=== PATIENT | male | born 1940 | race Caucasian/White ===

== ENCOUNTER 2021-03-10 08:49 | Emergency (ER) | payer MEDICARE, OTHER ==
[~2021-03-10 08:49] MED LIST: CHLORHEXIDINE; CLEOCIN HCL300 MG PO; HYDROCHLOROTHIA25 MG PO; LIPITOR20 MG PO; NORCO 5-325 TA1 EACH PO; STOOL SOFTENER240 MG PO; TOPROL XL25 MG PO; VITAMIN B12; VITAMIN D 11000 UNIT PO
[2021-03-10 09:52] LABS: HEMOGLOBIN 15.1 gm/dl (14.0-17.5); RED BLOOD COUNT 4.5 M/UL (4.20-5.50); WHITE BLOOD COUNT 6.6 K/UL (4.5-11.0)
[2021-03-10 09:55] LABS: BUN/CREATININE RATIO 25 (0-10)
== END 2021-03-10 17:15 | disposition short-term general hospital (02) ==
LOC: ER1 08:49
PROVIDERS: Emergency Medicine
DX: S32.029A Unspecified fracture of second lumbar vertebra, initial encounter for closed fracture (principal); D69.6 Thrombocytopenia, unspecified; I10 Essential (primary) hypertension; Z85.46 Personal history of malignant neoplasm of prostate; F17.200 Nicotine dependence, unspecified, uncomplicated; X58.XXXA Exposure to other specified factors, initial encounter; Z85.79 Personal history of other malignant neoplasms of lymphoid, hematopoietic and related tissues
CPT/HCPCS: 72131; 80053; 81001; 85025; 96374; 96375; 96376; 99285; J2270; J2405; J7030

== ENCOUNTER 2021-04-14 11:32 | Emergency (ER) | payer MEDICARE, OTHER ==
[2021-04-14 12:14] LABS: HEMOGLOBIN 14.9 gm/dl (14.0-17.5); RED BLOOD COUNT 4.63 M/UL (4.20-5.50); WHITE BLOOD COUNT 6.4 K/UL (4.5-11.0)
[2021-04-14 12:42] LABS: BUN/CREATININE RATIO 20 (0-10)
== END 2021-04-14 14:54 | disposition home or self-care (01) ==
LOC: ER1 11:32
PROVIDERS: Physician Assistant
DX: R06.02 Shortness of breath (principal); I10 Essential (primary) hypertension; J44.9 Chronic obstructive pulmonary disease, unspecified; Z20.822 Contact with and (suspected) exposure to COVID-19; F17.210 Nicotine dependence, cigarettes, uncomplicated; Z86.718 Personal history of other venous thrombosis and embolism; Z90.49 Acquired absence of other specified parts of digestive tract; Z79.01 Long term (current) use of anticoagulants
CPT/HCPCS: 0240U; 71045; 80053; 82550; 82553; 83874; 83880; 84484; 85025; 93005; 96374; 99285; J1885; Q9967

== ENCOUNTER → 2021-07-05 | Outpatient (CLI) | payer MEDICARE, OTHER | LOC: HEART 5 10:37 | DX: J44.9 Chronic obstructive pulmonary disease, unspecified (principal); I10 Essential (primary) hypertension; N40.0 Benign prostatic hyperplasia without lower urinary tract symptoms | CPT/HCPCS: 94060; 94729 ==

== ENCOUNTER → 2021-07-05 | Outpatient (CLI) | payer MEDICARE, OTHER | LOC: RT 12:35 | DX: R09.02 Hypoxemia (principal) | CPT/HCPCS: 36600; 82803 ==

== ENCOUNTER 2022-01-07 15:44 | Inpatient (IN) | payer MEDICARE, OTHER ==
[~2022-01-07] VITALS: Ht 185.4 cm; Wt 98.0 kg
[2022-01-07 16:47] LABS: HEMOGLOBIN 12.6 gm/dl (14.0-17.5); RED BLOOD COUNT 3.78 M/UL (4.20-5.50); WHITE BLOOD COUNT 1.8 K/UL (4.5-11.0)
[2022-01-07 17:08] LABS: BUN/CREATININE RATIO 31 (0-10)
--- NOTE | 2022-01-08 01:57 | NUR ---
NOTIFIED OF PT BP 114/69, 116 PULSE, J28 RR, 02 94% ON 3 L PTS LUNGS ARE CLEAR, RR ARE SHALLOW ORDERED DUONEBS Q6HP LACTIC ACID ORDERED WCTM
[2022-01-08 02:43] LABS: WHITE BLOOD COUNT 1.6 K/UL (4.5-11.0)
[2022-01-08 03:15] LABS: RED BLOOD COUNT 3.21 M/UL (4.20-5.50)
--- NOTE | 2022-01-08 03:25 | NUR ---
PATIENTS LACTIC ACID OF 22 AND 27 THOMBO WAS CALLED TO [facility] 250 BOLUS ORDERED WCTM
[2022-01-08] MEDS ORDERED: IPRAT-ALBUT 0.5-3 ML INH (09:13)
[2022-01-08] MEDS ORDERED: BREZTRI AEROS10.7 GM INH (09:15)
[2022-01-08] MEDS ORDERED: LOPRESSOR 25 MG25 MG PO (09:16)
[2022-01-08] MEDS ORDERED: ZESTRIL5 MG PO (09:16)
[2022-01-08] MEDS ORDERED: MELATONIN5 M2 PO (09:17)
[2022-01-08] MEDS ORDERED: VAZALORE81 MG PO (09:18)
[2022-01-08] MEDS ORDERED: TYLENOL325 M1 PO (09:18)
[2022-01-08] MEDS ORDERED: NINLARO PO (09:27)
[2022-01-08] MEDS ORDERED: REVLIMID15 MG PO (09:28)
[2022-01-08] MEDS ORDERED: DEXAMETHASONE 44 MG PO (09:30)
--- NOTE | 2022-01-08 10:23 | NUR ---
MD AWARE OF PATIENT'S CRITICAL LACTIC ACID LEVEL AND CONTINUED HYPOTENSION AFTER LITER BOLUS.
--- NOTE | 2022-01-08 10:45 | NUR ---
RN SPOKE WITH MD ABOUT PATIENT'S LOW BLOOD PRESSURE AND NEED FOR PAIN MANAGEMENT. MD ORDERED RN TO PUT IN FOR A PCU BED AND STATED PATIENT WOULD NEED TO BE PUT ON A DRIP TO INCREASE BLOOD PRESSURE. MD STATED SHE WOULD PUT IN TRANSFER ORDER. RN NOTIFIED [employer] ABOUT PATIENT'S NEED FOR HIGHER LEVEL OF CARE. PATIENT BLOOD PRESSURE OBTAINED MANUALLY AND NOTED TO HAVE INCREASED SLIGHTLY TO 88/48. BED LOCKED AND LOW. CALL LIGHT WITHIN REACH. PENDING ROOM CLEAN NOTIFICATION VIA TELETRACKING.
--- NOTE | 2022-01-08 11:03 | NUR ---
REPORT CALLED TO DIMITRIS TRAMMELL ON PCU. PATIENT TO GO TO ROOM 6103, DR. MORTENSEN AND PRESCHOOL HEAD TEACHER AWARE.
--- NOTE | 2022-01-08 11:22 | NUR ---
PATIENT TRANSPORTED TO ROOM 6103 BY RN AND CHARGE NURSE.
--- NOTE | 2022-01-08 11:38 | NUR ---
patient's renetta made aware of transfer.
[2022-01-09 04:04] LABS: HEMOGLOBIN 10.7 gm/dl (14.0-17.5); RED BLOOD COUNT 3.19 M/UL (4.20-5.50)
[2022-01-09 04:17] LABS: WHITE BLOOD COUNT 3.2 K/UL (4.5-11.0)
[2022-01-10 01:39] LABS: HEMOGLOBIN 10.5 gm/dl (14.0-17.5); RED BLOOD COUNT 3.1 M/UL (4.20-5.50)
[2022-01-10 01:43] LABS: WHITE BLOOD COUNT 4.2 K/UL (4.5-11.0)
[2022-01-10 22:00] LABS: HEMOGLOBIN 10.8 gm/dl (14.0-17.5); RED BLOOD COUNT 3.19 M/UL (4.20-5.50); WHITE BLOOD COUNT 4.7 K/UL (4.5-11.0)
--- NOTE | 2022-01-11 00:49 | NUR ---
[id number] (RON) WAS NOTIFIED OF MD PLANNING TO INTUBATE PT. WAS ON BOARD AND AGREED TO MOVING FORWARD WITH INTUBATION. 01-11-2229 (RON) WAS CALLED AGAIN TO OBTAIN CONSENT FOR BLOOD. GAVE CONSENT FOR BLOOD VIA THE PHONE. WAS ALSO UPDATED ON PTS CURRENT CONDITION WELL THE NEED FOR US TO PERFORM AN EMERGENT BRONCH. WAS IN AGREEMENT WITH THE PROCEDURE AND WAS "GLAD" IT WAS DONE. MARTIN MONTGOMERY RN
[2022-01-11 04:46] LABS: HEMOGLOBIN 9.5 gm/dl (14.0-17.5); RED BLOOD COUNT 2.85 M/UL (4.20-5.50)
[2022-01-12 04:35] LABS: HEMOGLOBIN 9.8 gm/dl (14.0-17.5); RED BLOOD COUNT 2.91 M/UL (4.20-5.50)
[2022-01-12 04:44] LABS: WHITE BLOOD COUNT 2.3 K/UL (4.5-11.0)
[2022-01-12 22:17] LABS: HEMOGLOBIN 8.7 gm/dl (14.0-17.5)
[2022-01-12 22:19] LABS: RED BLOOD COUNT 2.54 M/UL (4.20-5.50); WHITE BLOOD COUNT 3.7 K/UL (4.5-11.0)
[2022-01-13 05:05] LABS: HEMOGLOBIN 8.5 gm/dl (14.0-17.5); RED BLOOD COUNT 2.48 M/UL (4.20-5.50)
[2022-01-13 05:06] LABS: WHITE BLOOD COUNT 2.1 K/UL (4.5-11.0)
[2022-01-14 02:26] LABS: HEMOGLOBIN 8.3 gm/dl (14.0-17.5); RED BLOOD COUNT 2.45 M/UL (4.20-5.50); WHITE BLOOD COUNT 3.2 K/UL (4.5-11.0)
[2022-01-15 05:43] LABS: HEMOGLOBIN 8.5 gm/dl (14.0-17.5); RED BLOOD COUNT 2.5 M/UL (4.20-5.50); WHITE BLOOD COUNT 3.4 K/UL (4.5-11.0)
[2022-01-16 05:10] LABS: HEMOGLOBIN 8.5 gm/dl (14.0-17.5); RED BLOOD COUNT 2.56 M/UL (4.20-5.50)
[2022-01-16 05:11] LABS: WHITE BLOOD COUNT 1.5 K/UL (4.5-11.0)
--- NOTE | 2022-01-16 10:34 | NUR ---
AT O830 DR. NAJERA AT THE BEDSIDE WITH PATIENT SON. DISCUSSED END OF LIFE AND PATIENT WISHES. SON DETERMINED TO MAKE FATHER COMFORT MEASURES. ORDERS WRITTEN PER DR. NAJERA AND SEDATION AND ALL LIFESAVING DRIPS HELD AT 0935. WILL MONITOR PATIENT CLOSELY.
== END 2022-01-16 15:00 | disposition expired | DRG 870 ==
LOC: ER1 15:44 → CDU 20:07 → PROG CARE 20:07 → CCU 20:07 → MED SURG 4 20:07 → PROG CARE 01-08 11:20 → CCU 01-10 20:41
PROVIDERS: Emergency Medicine; Internal Medicine; Internal Medicine Nephrology; Internal Medicine Pulmonary Disease; Registered Nurse; ADMIT Family Medicine
PROC: 3E043XZ Introduction of Vasopressor into Central Vein, Percutaneous Approach (ICD-10-PCS; principal; 2022-01-08)
PROC: 3E03329 Introduction of Other Anti-infective into Peripheral Vein, Percutaneous Approach (ICD-10-PCS; 2022-01-08)
PROC: 5A1955Z Respiratory Ventilation, Greater than 96 Consecutive Hours (ICD-10-PCS; 2022-01-10)
PROC: 0BH17EZ Insertion of Endotracheal Airway into Trachea, Via Natural or Artificial Opening (ICD-10-PCS; 2022-01-10)
PROC: 0BC78ZZ Extirpation of Matter from Left Main Bronchus, Via Natural or Artificial Opening Endoscopic (ICD-10-PCS; 2022-01-10)
PROC: 0BCB8ZZ Extirpation of Matter from Left Lower Lobe Bronchus, Via Natural or Artificial Opening Endoscopic (ICD-10-PCS; 2022-01-10)
PROC: 0BC88ZZ Extirpation of Matter from Left Upper Lobe Bronchus, Via Natural or Artificial Opening Endoscopic (ICD-10-PCS; 2022-01-10)
PROC: 0BC68ZZ Extirpation of Matter from Right Lower Lobe Bronchus, Via Natural or Artificial Opening Endoscopic (ICD-10-PCS; 2022-01-10)
PROC: 0BC48ZZ Extirpation of Matter from Right Upper Lobe Bronchus, Via Natural or Artificial Opening Endoscopic (ICD-10-PCS; 2022-01-10)
PROC: 0B9J8ZX Drainage of Left Lower Lung Lobe, Via Natural or Artificial Opening Endoscopic, Diagnostic (ICD-10-PCS; 2022-01-10)
PROC: 5A09357 Assistance with Respiratory Ventilation, Less than 24 Consecutive Hours, Continuous Positive Airway Pressure (ICD-10-PCS; 2022-01-10)
PROC: 5A0935A Assistance with Respiratory Ventilation, Less than 24 Consecutive Hours, High Flow/Velocity Cannula (ICD-10-PCS; 2022-01-10)
PROC: 0DH63UZ Insertion of Feeding Device into Stomach, Percutaneous Approach (ICD-10-PCS; 2022-01-11)
PROC: 3E0G76Z Introduction of Nutritional Substance into Upper GI, Via Natural or Artificial Opening (ICD-10-PCS; 2022-01-11)
PROC: 0BH18EZ Insertion of Endotracheal Airway into Trachea, Via Natural or Artificial Opening Endoscopic (ICD-10-PCS; 2022-01-11)
DX: A41.9 Sepsis, unspecified organism (principal); R65.21 Severe sepsis with septic shock; J18.9 Pneumonia, unspecified organism; N17.0 Acute kidney failure with tubular necrosis; J96.21 Acute and chronic respiratory failure with hypoxia; J96.22 Acute and chronic respiratory failure with hypercapnia; D61.810 Antineoplastic chemotherapy induced pancytopenia; A09 Infectious gastroenteritis and colitis, unspecified; E44.0 Moderate protein-calorie malnutrition; J98.19 Other pulmonary collapse; E87.2 Acidosis; J44.0 Chronic obstructive pulmonary disease with (acute) lower respiratory infection; J98.11 Atelectasis; G93.49 Other encephalopathy; C90.00 Multiple myeloma not having achieved remission; J94.2 Hemothorax; D50.9 Iron deficiency anemia, unspecified; R53.83 Other fatigue; Z20.822 Contact with and (suspected) exposure to COVID-19; E78.5 Hyperlipidemia, unspecified; N18.30 Chronic kidney disease, stage 3 unspecified; I71.4 Abdominal aortic aneurysm, without rupture; L89.326 Pressure-induced deep tissue damage of left buttock; E87.70 Fluid overload, unspecified; M19.90 Unspecified osteoarthritis, unspecified site; R00.1 Bradycardia, unspecified; F17.200 Nicotine dependence, unspecified, uncomplicated; T45.1X5A Adverse effect of antineoplastic and immunosuppressive drugs, initial encounter; Z66 Do not resuscitate; I46.9 Cardiac arrest, cause unspecified; R74.01 Elevation of levels of liver transaminase levels; E88.09 Other disorders of plasma-protein metabolism, not elsewhere classified; R59.1 Generalized enlarged lymph nodes; I12.9 Hypertensive chronic kidney disease with stage 1 through stage 4 chronic kidney disease, or unspecified chronic kidney disease; Z85.46 Personal history of malignant neoplasm of prostate; Z85.51 Personal history of malignant neoplasm of bladder; Z85.828 Personal history of other malignant neoplasm of skin; Z90.89 Acquired absence of other organs; Z98.890 Other specified postprocedural states; Z90.49 Acquired absence of other specified parts of digestive tract; Z95.5 Presence of coronary angioplasty implant and graft; Z79.82 Long term (current) use of aspirin; Z79.899 Other long term (current) drug therapy; Z74.01 Bed confinement status; Z51.5 Encounter for palliative care; Z92.21 Personal history of antineoplastic chemotherapy; Z68.28 Body mass index [BMI] 28.0-28.9, adult
CPT/HCPCS: 31500; 36415; 36430; 36600; 71045; 80048; 80053; 80202; 82550; 82553; 82570; 82803; 82962; 83605; 83615; 83690; 83735; 84100; 84156; 84484; 85025; 85027; 85384; 85610; 85730; 86140; 86850; 86900; 86901; 87040; 87070; 87081; 87205; 93005; 94002; 94003; 94640; 94660; 94664; 94760; 96365; 96375; 96376; 99285; A6212; C9113; J0295; J0330; J0610; J1170; J2020; J2250; J2270; J2370; J2405; J2543; J2765; J2920; J3370; J3475; J3486; J7030; J7040; J7042; J7050; J7070; P9035; P9045; P9047; Q9967; U0002